=== PATIENT | male | born 1975 | race Caucasian/White ===

== ENCOUNTER → 2021-02-11 | Outpatient (CLI) | payer OTHER ==
--- NOTE | 2021-02-13 20:34 | ECHO ---
ECHOCARDIOGRAM DATE OF PROCEDURE: 02/11/2021 Age: 45 Gender: Male Height: 180 cm Weight: 132 kg REFERRING PHYSICIAN: DEVEN Hernandez INDICATION: Chest pain unspecified MEASUREMENTS: 2D Measurements: Left ventricle diastole 5.1 cm Intraventricular septum 0.96 cm Posterior wall 1.02 cm Aortic root 3.9 cm Left atrium 3.9 cm Proximal ascending aorta 3.0 cm Left atrial volume index 19 Doppler Measurements: LVOT velocity 105 cm/s LVOT VTI 20.8 cm Mitral E velocity 78.0 cm/s Mitral A velocity 54.0 cm/s Mitral deceleration time 148 msec MITRAL ANNULAR TISSUE DOPPLER E prime septal 7.3 cm/s, E prime lateral 12.4 cm/s DESCRIPTION: Rhythm was sinus. This was a moderately technically difficult echocardiogram. No pericardial effusion. This was a 2D, M-mode, color flow Doppler, and pulsed wave Doppler examination including mitral annular tissue Doppler. CONCLUSIONS: 1. Normal left ventricle internal dimensions and wall thickness. Normal regional LV wall motion and wall thickening. Normal LV systolic function. LVEF 65% by visual estimate. Normal LV diastolic function. 2. No pericardial effusion. 3. Mild mitral annular calcification. No mitral regurgitation. 4. Moderately technically difficult echocardiogram. 5. Otherwise normal appearing echocardiogram Doppler findings.
== END ==
LOC: M CARPUL 08:21
PROVIDERS: ATTEND Nurse Practitioner Primary Care
DX: R07.9 Chest pain, unspecified (principal); R00.2 Palpitations

== ENCOUNTER 2021-08-05 23:07 | Emergency (ER) | payer OTHER ==
[~2021-08-05] VITALS: Ht 180.3 cm; Wt 134.7 kg
[2021-08-05] MEDS ORDERED: CITA20TA6 PO (23:15)
[2021-08-05] MEDS ORDERED: CRES40TA PO (23:15)
[2021-08-05] MEDS ORDERED: LISI10TA22 PO (23:15)
[2021-08-05] MEDS ORDERED: PANT40TA29 PO (23:15)
[2021-08-05] MEDS ORDERED: OMEG10002 PO (23:15)
[2021-08-05] MEDS ORDERED: MORPHINE 2 MG/ML 1ML VIAL (J2270) IV PRN (23:35)
[2021-08-06 00:21] LABS: BASO # 0.1 10^3/uL (0.0-0.2); EOS # 0.1 10^3/uL (0.0-0.5); EOS % 1.5 % (0.0-3.0); HEMATOCRIT 39.7 % (42.0-52.0); HEMOGLOBIN 13.7 g/dl (13.5-17.5); LYMPH # 2.4 10^3/uL (1.5-5.0); LYMPH % 26.2 % (24.0-44.0); MEAN CORPUSCULAR HEMOGLOBIN 30.9 pg (27.0-33.0); MEAN CORPUSCULAR HGB CONC 34.5 g/dl (32.0-36.5); MEAN CORPUSCULAR VOLUME 89.4 fl (80.0-96.0); MONO # 0.8 10^3/uL (0.0-0.8); MONO % 8.2 % (2.0-8.0); NEUTROPHILS # 5.7 10^3/uL (1.5-8.5); NEUTROPHILS % 62.8 % (36.0-66.0); PLATELET COUNT, AUTOMATED 293 10^3/uL (150-450); RED BLOOD COUNT 4.44 10^6/uL (4.30-6.10); WHITE BLOOD COUNT 9.1 10^3/uL (4.0-10.0)
[2021-08-06 00:25] LABS: INR 1.04
[2021-08-06 00:26] LABS: PARTIAL THROMBOPLASTIN TIME 28.6 SECONDS (25.9-37.0)
--- NOTE | 2021-08-06 00:36 | REPVR ---
PROCEDURE INFORMATION: Exam: CT Head Without Contrast Exam date and time: 08/05/2021 11:11 PM Age: 45 years old Clinical indication: Altered mental status/memory loss; Confusion or disorientation TECHNIQUE: Imaging protocol: Computed tomography of the head without contrast. Radiation optimization: All CT scans at this facility use at least one of these dose optimization techniques: automated exposure control; mA and/or kV adjustment per patient size (includes targeted exams where dose is matched to clinical indication); or iterative reconstruction. COMPARISON: No relevant prior studies available. FINDINGS: Brain: Normal. No hemorrhage. Unremarkable white matter. No mass effect. Cerebral ventricles: No ventriculomegaly. Paranasal sinuses: Visualized sinuses are unremarkable. No fluid levels. Mastoid air cells: Visualized mastoid air cells are well aerated. Bones/joints: Unremarkable. No acute fracture. Soft tissues: Unremarkable. IMPRESSION: No acute intracranial abnormality. Electronically signed by: Ean Fenton On 08/06/2021 00:36:16 AM
--- NOTE | 2021-08-06 00:39 | REPVR ---
PROCEDURE INFORMATION: Exam: XR Chest Exam date and time: 08/06/2021 12:13 AM Age: 45 years old Clinical indication: Other: Chest pain TECHNIQUE: Imaging protocol: XR of the chest. Views: 1 view. COMPARISON: No relevant prior studies available. FINDINGS: Tubes, catheters and devices: EKG leads. Lungs: Left lung base atelectasis or trace infiltrate. Pleural spaces: Unremarkable. No pleural effusion. No pneumothorax. Heart/Mediastinum: Unremarkable. No cardiomegaly. Bones/joints: Unremarkable. Soft tissues: Foreign body hyperdensity overlapping the left chest, uncertain significance. IMPRESSION: Left lung base atelectasis or trace infiltrate. Electronically signed by: Ean Fenton On 08/06/2021 00:38:43 AM
[2021-08-06 00:44] LABS: CK-MB VALUE MASS < 1.0 NG/ML (<3.6); CPK CREATINE PHOSPHOKINASE 126 U/L (39-308); MB/CK RELATIVE INDEX 0.79 (< OR =4)
[2021-08-06 00:53] LABS: ALT/SGPT 62 U/L (12-78); BILIRUBIN,DIRECT 0.2 MG/DL (0.0-0.2); BILIRUBIN,TOTAL 0.2 MG/DL (0.2-1.0); BLOOD UREA NITROGEN 14 MG/DL (7-18); CARBON DIOXIDE LEVEL 26 MEQ/L (21-32); CHLORIDE LEVEL 104 MEQ/L (98-107); CREATININE FOR GFR 0.91 MG/DL (0.70-1.30); GLOMERULAR FILTRATION RATE > 60.0 (>60); GLUCOSE, FASTING 119 MG/DL (70-100); SODIUM LEVEL 138 MEQ/L (136-145); TOTAL PROTEIN 7.1 GM/DL (6.4-8.2)
[2021-08-06 00:54] LABS: ALBUMIN 3.7 GM/DL (3.2-5.2); ETHYL ALCOHOL (ETHANOL) < 0.003 % (0.000-0.010); NT-PRO BNP 7 PG/ML (<125)
[2021-08-06] MEDS ORDERED: ISOVUE-370 76% 100ML VIAL As Ordered ONE (01:15)
[2021-08-06 01:45] LABS: CK-MB VALUE MASS < 1.0 NG/ML (<3.6); CPK CREATINE PHOSPHOKINASE 123 U/L (39-308); MB/CK RELATIVE INDEX 0.81 (< OR =4)
[2021-08-06] MEDS ORDERED: NORCO, ANEXSIA 5/325MG TABLET (HYDROcodone/ACETAMINOPHEN) PO ONE (02:55)
--- NOTE | 2021-08-06 03:01 | REPVR ---
PROCEDURE INFORMATION: Exam: CTA Chest With Contrast Exam date and time: 08/06/2021 1:11 AM Age: 45 years old Clinical indication: Shortness of breath; Additional info: Chest pain, left TECHNIQUE: Imaging protocol: Computed tomographic angiography of the chest with contrast. 3D rendering (Not supervised by radiologist): MIP and/or 3D reconstructed images were created by the technologist. Radiation optimization: All CT scans at this facility use at least one of these dose optimization techniques: automated exposure control; mA and/or kV adjustment per patient size (includes targeted exams where dose is matched to clinical indication); or iterative reconstruction. Contrast material: ISO; Contrast volume: 75 ml; Contrast route: INTRAVENOUS (IV); COMPARISON: CR PORTABLE CHEST X-RAY 2021-08-05 23:49 FINDINGS: Pulmonary arteries: No filling defects in the pulmonary arteries to suggest pulmonary emboli. Aorta: Unremarkable. No aortic aneurysm. No aortic dissection. Lungs: Unremarkable. No consolidation. No masses. Pleural spaces: Unremarkable. No pneumothorax. No pleural effusion. Heart: No significant coronary artery calcification. Lymph nodes: Unremarkable. No enlarged lymph nodes. Bones/joints: Unremarkable. No acute fracture. Soft tissues: Unremarkable. IMPRESSION: No filling defects in the pulmonary arteries to suggest pulmonary emboli. Electronically signed by: Ean Fenton On 08/06/2021 03:01:16 AM
[2021-08-06] MEDS ORDERED: NORCO 5/325MG TABLET (BULK FOR ED) PO ONE (03:40)
[2021-08-06 04:06] VITALS: BP 139/80
--- NOTE | 2021-08-06 08:25 | ECGEPIP ---
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
--- NOTE | 2021-08-06 08:25 | ECGEPIP ---
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
== END 2021-08-06 04:07 | disposition home or self-care (01) ==
LOC: M ED 23:07
DX: R09.1 Pleurisy (principal); R07.89 Other chest pain; I10 Essential (primary) hypertension; Z88.6 Allergy status to analgesic agent
CPT/HCPCS: 70450; 71045; 71275; 80048; 80076; 82077; 82550; 82553; 83880; 84443; 84484; 85025; 85610; 85730; 87798; 93005; 93041; 94760; 99284; Q9967

== ENCOUNTER 2021-11-19 17:24 | Emergency (ER) | payer OTHER ==
[~2021-11-19] VITALS: Ht 180.3 cm; Wt 135.3 kg
[~2021-11-19 17:24] MED LIST: CITA20TA6 PO; CRES40TA PO; LISI10TA22 PO; OMEG10002 PO; PANT40TA29 PO
[2021-11-19] MEDS ORDERED: NORCO, ANEXSIA 5/325MG TABLET (HYDROcodone/ACETAMINOPHEN) PO ONE (20:25)
[2021-11-19] MEDS ORDERED: LIDOCAINE 1% MDV 20ML VIAL SC ONE (21:55)
[2021-11-19 22:01] LABS: HEMATOCRIT 42.7 % (42.0-52.0); HEMOGLOBIN 15.1 g/dl (13.5-17.5); MEAN CORPUSCULAR HEMOGLOBIN 31.3 pg (27.0-33.0); MEAN CORPUSCULAR HGB CONC 35.4 g/dl (32.0-36.5); MEAN CORPUSCULAR VOLUME 88.4 fl (80.0-96.0); PLATELET COUNT, AUTOMATED 264 10^3/uL (150-450); RED BLOOD COUNT 4.83 10^6/uL (4.30-6.10); WHITE BLOOD COUNT 7.9 10^3/uL (4.0-10.0)
[2021-11-19 22:27] LABS: RSV AMPLIFICATION NEGATIVE (NEGATIVE)
[2021-11-19 22:29] LABS: AMPHETAMINES LEVEL URINE NEGATIVE (NEGATIVE); BARBITURATES URINE NEGATIVE (NEGATIVE); BENZODIAZEPINES URINE NEGATIVE (NEGATIVE); CANNABINOIDS URINE NEGATIVE (NEGATIVE); COCAINE METABOLITE URINE NEGATIVE (NEGATIVE); METHADONE URINE NEGATIVE (NEGATIVE); OPIATES URINE NEGATIVE (NEGATIVE); PHENCYCLIDINE URINE NEGATIVE (NEGATIVE)
[2021-11-19 22:39] LABS: ACETAMINOPHEN LEVEL < 2.0 UG/ML (10.0-30.0); ALT/SGPT 42 U/L (12-78); BILIRUBIN,DIRECT 0.2 MG/DL (0.0-0.2); BILIRUBIN,TOTAL 0.4 MG/DL (0.2-1.0); BLOOD UREA NITROGEN 12 MG/DL (7-18); CALCIUM LEVEL 8.7 MG/DL (8.5-10.1); CARBON DIOXIDE LEVEL 25 MEQ/L (21-32); CHLORIDE LEVEL 106 MEQ/L (98-107); ETHYL ALCOHOL (ETHANOL) < 0.003 % (0.000-0.010); GLOMERULAR FILTRATION RATE > 60.0 (>60); GLUCOSE, FASTING 89 MG/DL (70-100); POTASSIUM SERUM 3.8 MEQ/L (3.5-5.1); SALICYLATE LEVEL < 1.7 MG/DL (5.0-30.0); SODIUM LEVEL 140 MEQ/L (136-145); TOTAL PROTEIN 7.4 GM/DL (6.4-8.2)
[2021-11-19] MEDS ORDERED: PERCOCET 5MG/325MG TAB PO ONE (23:00)
[2021-11-20] MEDS ORDERED: FISH1000 PO (00:22)
[2021-11-20] MEDS ORDERED: FLUTISP (00:22)
[2021-11-20] MEDS ORDERED: LISI30TA4 PO (00:22)
[2021-11-20] MEDS ORDERED: LEXA1TAB2 PO (00:22)
[2021-11-20] MEDS ORDERED: excedrin PO (00:26)
[2021-11-20] MEDS ORDERED: ERGO500029 PO (00:26)
[2021-11-20] MEDS ORDERED: HOME MED LIST COMPLETE! XX SCH (00:30)
[2021-11-20] MEDS ORDERED: PERCOCET 5MG/325MG TAB PO ONE ×2 (02:00→20:50)
[2021-11-20] MEDS: PERCOCET 5MG/325MG TAB PO PRN ×3 (08:13→20:58)
[2021-11-20] MEDS ORDERED: PANTOPRAZOLE 40MG TAB (PROTONIX) PO SCH (09:00)
[2021-11-20] MEDS ORDERED: ROSUVASTATIN 10 MG TAB (CRESTOR) PO SCH (09:00)
[2021-11-20] MEDS ORDERED: ESCITALOPRAM OXALATE 10 MG TAB (LEXAPRO) PO SCH (09:00)
[2021-11-20 21:34] VITALS: BP 140/95
== END 2021-11-20 21:46 ==
LOC: M ED 17:24
DX: F33.2 Major depressive disorder, recurrent severe without psychotic features (principal); S62.307A Unspecified fracture of fifth metacarpal bone, left hand, initial encounter for closed fracture; W22.8XXA Striking against or struck by other objects, initial encounter; Y92.9 Unspecified place or not applicable; Y93.89 Activity, other specified; Y99.9 Unspecified external cause status; F43.10 Post-traumatic stress disorder, unspecified; I10 Essential (primary) hypertension; K21.9 Gastro-esophageal reflux disease without esophagitis; F10.10 Alcohol abuse, uncomplicated; Z79.899 Other long term (current) drug therapy; Z88.6 Allergy status to analgesic agent

== ENCOUNTER → 2022-11-03 | Outpatient (REF) ==
[~2022-11-03] MED LIST changes: +ERGO500029 PO; +FISH1000 PO; +FLUTISP; +LEXA1TAB2 PO; +LISI30TA4 PO; +excedrin PO
== END ==
LOC: M PLAIMG 10:46
PROVIDERS: ATTEND Internal Medicine
DX: R06.02 Shortness of breath (principal)